=== PATIENT | female | born 1955 | race Caucasian/White ===

== ENCOUNTER 2020-04-01 13:21 | Emergency (ER) | payer OTHER ==
[2020-04-01] MEDS: Ondansetron 4 MG/2 ML SDV IVPUSH ONE (13:56)
[2020-04-01] MEDS: Sodium Chloride 0.9% 10 ML Syringe FLUSH PRN (13:57)
[2020-04-01] MEDS ORDERED: Ondansetron 4 MG/2 ML SDV ONE (13:58)
[2020-04-01 14:01] LABS: CHLORIDE,CL 104 mmol/L (98-107); SODIUM,NA 141 mmol/L (136-145)
--- NOTE | 2020-04-01 14:43 | EDM.PDOC ---
ED HPI GENERAL MEDICAL PROBLEM - General Chief Complaint: Neuro Symptoms/Deficits Stated Complaint: stroke code Time Seen by Provider: 04/01/20 13:30 Source of Information: Reports: Patient, EMS Notes Reviewed History Limitations: Reports: No Limitations - History of Present Illness INITIAL COMMENTS - FREE TEXT/NARRATIVE: Pt was at store in town and stood up and felt like left ankle gave out. Sat back down and had syncope episode Nurse on scene said lasted 3 to 5 minutes and could not feel radial pulse Did have spontaneous respirations Nurse on scene thought maybe had left face droop EMS states upon arrival, face droop had resolved and pt awake and alert No seizure activity No previous hx/o same No trauma No illness Onset: Today, Sudden Duration: Minutes:, Improving Location: Reports: Generalized - Related Data Allergies Allergy/AdvReac Type Severity Reaction Status Date / Time No Known Allergies Allergy Verified 04/01/20 13:30 Home Meds: Home Meds . [No Known Home Meds] 04/01/20 [History] Social & Family History - Living Situation & Occupation Living situation: Reports: Occupation: Employed ED ROS GENERAL - Review of Systems Review Of Systems: See Below Constitutional: Reports: No Symptoms HEENT: Reports: No Symptoms Respiratory: Reports: No Symptoms Cardiovascular: Reports: Other (Possible asystole) GI/Abdominal: Reports: No Symptoms Musculoskeletal: Reports: No Symptoms Neurological: Reports: Syncope ED EXAM, NEURO - Physical Exam Exam: See Below Exam Limited By: No Limitations General Appearance: Alert, No Apparent Distress Eye Exam: Bilateral Eye: EOMI, PERRL Nose: Normal Inspection Throat/Mouth: Normal Oropharynx Head Exam: Atraumatic Neck: Supple, Non-Tender, Full Range of Motion Respiratory/Chest: Lungs Clear Cardiovascular: Regular Rate, Rhythm GI/Abdominal: Non-Tender Neurological: Alert, Normal Mood/Affect, No Motor/Sensory Deficits, Oriented x 3 , Other (GCS 15 Stroke scale 0) Extremities: Normal Inspection Psychiatric: Normal Affect Course - Orders/Labs/Meds Orders: Active Orders 24 hr Category Date Time Status EKG Documentation Completion [RC] ASDIRECTED Care 04/01/20 13:32 Active Chest 1V Frontal [CR] Stat Exams 04/01/20 13:32 Taken Head wo Cont [CT] Stat Exams 04/01/20 13:22 Taken Sodium Chloride 0.9% [Saline Flush] Med 04/01/20 13:53 Active 10 ml FLUSH ASDIRECTED PRN Medication Orders Sodium Chloride (Saline Flush) 10 ml FLUSH ASDIRECTED PRN PRN Reason: Keep Vein Open Last Admin: 04/01/20 13:57 Dose: 10 ml Labs: Laboratory Tests 04/01/20 04/01/20 04/01/20 Range/Units 13:35 13:35 13:35 WBC 7.7 (4.0-10.2) K/uL RBC 4.47 (3.77-5.09) M/uL Hgb 13.3 (11.7-15.5) g/dL Hct 40.5 (34.0-46.0) % MCV 90.6 (84.0-98.0) fL MCH 29.8 (28.2-33.3) pg MCHC 32.8 (31.7-36.0) g/dL RDW 13.3 (11.2-14.1) % Plt Count 290 (150-350) K/uL Neut % (Auto) 44.7 L (45.0-80.0) % Lymph % (Auto) 45.8 (10.0-50.0) % Fleming % (Auto) 6.8 (2.0-14.0) % Eos % (Auto) 2.3 (0.0-5.0) % Baso % (Auto) 0.4 (0.0-2.0) % Neut # (Auto) 3.42 (1.40-7.00) K/uL Lymph # (Auto) 3.51 H (0.50-3.50) K/uL Fleming # (Auto) 0.52 (0.00-1.00) K/uL Eos # (Auto) 0.18 (0.00-0.50) K/uL Baso # (Auto) 0.03 (0.00-0.20) K/uL PT 9.9 (9.5-12.0) SEC INR 1.0 Sodium 141 (136-145) mmol/L Potassium 3.6 (3.5-5.1) mmol/L Chloride 104 (98-107) mmol/L Carbon Dioxide 22.3 (21.0-32.0) mmol/L BUN 16 (7-18) mg/dL Creatinine 0.86 (0.51-1.17) mg/dL Est Cr Clr Drug Dosing TNP Estimated GFR (MDRD) > 60 mL/min Glucose 132 H (74-106) mg/dL Calcium 9.3 (8.5-10.1) mg/dL Total Bilirubin 0.4 (0.2-1.0) mg/dL AST 20 (15-37) U/L ALT 24 (12-78) U/L Alkaline Phosphatase 65 (46-116) IU/L Troponin I 0.000 (0.000-0.056) ng/mL Total Protein 7.7 (6.4-8.2) g/dL Albumin 4.0 (3.4-5.0) g/dL Meds: Medications Generic Name Dose Route Start Last Admin Trade Name Freq PRN Reason Stop Dose Admin Sodium Chloride 10 ml 04/01/20 13:53 04/01/20 13:57 Saline Flush FLUSH 10 ml ASDIRECTED PRN Administration Keep Vein Open Discontinued Medications Generic Name Dose Route Start Last Admin Trade Name Freq PRN Reason Stop Dose Admin Ondansetron HCl 4 mg 04/01/20 13:53 04/01/20 13:56 Zofran IVPUSH 04/01/20 13:54 4 mg ONETIME ONE Administration - Re-Assessments/Exams Free Text/Narrative Re-Assessment/Exam: 04/01/20 14:[address] negative Pt stable in ER D/W Dr Min On-call stroke neurology Will send to [facility] ER for syncope evaluation Departure - Departure Time of Disposition: 14:40 Disposition: DC/Tfer to Acute Hospital 02 Clinical Impression: Syncope Qualifiers: Syncope type: unspecified Qualified Code(s): R55 - Syncope and collapse - Discharge Information Referrals: PCP,None [Primary Care Provider] - - My Orders Last 24 Hours: My Active Orders 04/01/20 13:22 Head wo Cont [CT] Stat 04/01/20 13:32 EKG Documentation Completion [RC] ASDIRECTED Chest 1V Frontal [CR] Stat 04/01/20 13:53 Sodium Chloride 0.9% [Saline Flush] 10 ml FLUSH ASDIRECTED PRN - Assessment/Plan Last 24 Hours: My Active Orders 04/01/20 13:22 Head wo Cont [CT] Stat 04/01/20 13:32 EKG Documentation Completion [RC] ASDIRECTED Chest 1V Frontal [CR] Stat 04/01/20 13:53 Sodium Chloride 0.9% [Saline Flush] 10 ml FLUSH ASDIRECTED PRN
== END 2020-04-01 14:40 ==
LOC: LL.ED 13:21
DX: R55 Syncope and collapse (principal)
CPT/HCPCS: 36415; 70450; 71045; 80053; 84484; 85025; 85610; 93005; 96374; 99285-25; J2405

== ENCOUNTER 2020-10-08 09:47 | Day surgery (SDC) | payer OTHER ==
[~2020-10-08 09:47] MED LIST: Sodium Chloride 0.9% 10 ML Syringe FLUSH PRN
[2020-10-08] MEDS ORDERED: Lactated Ringers 1,000 ML IV SCH (10:45)
[2020-10-08] MEDS ORDERED: Propofol 200 MG/20 ML SDV ONE ×2 (11:36→11:42)
[2020-10-08] MEDS ORDERED: Midazolam 1 MG/ML 2 ML SDV ONE ×2 (11:36→11:42)
[2020-10-08] MEDS ORDERED: Ondansetron 4 MG/2 ML SDV ONE (11:42)
--- NOTE | 2020-10-08 11:51 | PCM.PN ---
- General Info Date of Service: 10/08/20 - Review of Systems Systems Review Comment:: 65-year-old female with change in bowel habits here for colonoscopy. She says it has been about 6 years since her last colon exam. I reviewed the patient's history and physical and no significant changes are noted. I have discussed the proposed colonoscopy with the patient. Risks such as but not limited to bleeding and GI injury reviewed. She agrees to proceed. - Patient Data Vitals - Most Recent: Last Vital Signs Temp 98.9 F 10/08/20 10:33 Pulse 73 10/08/20 10:33 Resp 18 10/08/20 10:33 BP 113/75 10/08/20 10:33 Pulse Ox 97 10/08/20 10:33 Weight - Most Recent: 72.575 kg Med Orders - Current: Current Medications Lactated Ringer's (Ringers, Lactated) 1,000 mls @ 125 mls/hr IV ASDIRECTED JUANITO Last Admin: 10/08/20 10:40 Dose: 125 mls/hr Documented by: Sodium Chloride (Saline Flush) 10 ml FLUSH ASDIRECTED PRN PRN Reason: Keep Vein Open Discontinued Medications Midazolam HCl (Versed 1 Mg/Ml) Confirm Administered Dose 2 mg .ROUTE .STK-MED ONE Stop: 10/08/20 11:37 Propofol (Diprivan 20 Ml) Confirm Administered Dose 200 mg .ROUTE .STK-MED ONE Stop: 10/08/20 11:37 Sepsis Event Note - Focused Exam Vital Signs: Vital Signs Temp Pulse Resp BP Pulse Ox 10/08/20 10:33 98.9 F 73 18 113/75 97 - Problem List Review Problem List Initiated/Reviewed/Updated: Yes - Assessment Assessment:: Change in bowel habits - Plan Plan:: Colonoscopy
--- NOTE | 2020-10-08 12:27 | PCM.OPNOTE ---
- General Post-Op/Procedure Note Date of Surgery/Procedure: 10/08/20 Operative Procedure(s): Colonoscopy Findings: Extensive left colon diverticulosis Moderate sized external hemorrhoids Pre Op Diagnosis: Change in bowel habits Post-Op Diagnosis: Left colon diverticulosis. Hemorrhoids Anesthesia Technique: MAC Primary Surgeon: Nura Pagan Pathology: none EBL in mLs: 0 Complications: None Condition: Good
--- NOTE | 2020-10-08 14:38 | OR ---
Date of Procedure: 10/08/2020 PREOPERATIVE DIAGNOSIS: Change in bowel habits. POSTOPERATIVE DIAGNOSIS: Left colon diverticulosis and hemorrhoids. OPERATIONS PERFORMED: Colonoscopy. INDICATIONS FOR SURGERY: This 65-year-old female has noted a recent change in her bowel pattern. It has been several years since her last colon exam and she comes for colonoscopy. FINDINGS: The patient has extensive diverticulosis in the sigmoid and descending colon. Multiple diverticula are noted, although they do not appear to be acutely inflamed, or otherwise, complicated. The patient also has moderate sized external hemorrhoids. The colon is otherwise normal. DESCRIPTION OF PROCEDURE: The patient was taken to the operating room. She was given intravenous sedation, and with her in the left lateral decubitus position, digital rectal exam was performed showing no rectal masses. The Olympus colonoscope was inserted into the rectum. Retroflexed examination of the rectal canal was performed. The scope was then carefully advanced under direct visualization through the entire length of the colon until the cecum was reached. Cecal acquisition was confirmed by noting the normal internal cecal anatomy including the appendiceal orifice and ileocecal valve and the light was also noted to transilluminate the abdominal wall in the right lower quadrant. After examining the cecum, the scope was slowly withdrawn sequentially re- examining the colonic segments until the entire colon and rectum had been fully examined. The scope was removed and the patient was taken from the operating room in satisfactory condition. ESTIMATED BLOOD LOSS: Zero. COMPLICATIONS: None. PROGNOSIS: Good. ARNOLD Pagan MD /[id number]
[2020-10-08 15:29] VITALS: BP 118/70; PULSE 63
== END 2020-10-08 14:00 | disposition home or self-care (01) ==
LOC: LL.SDS 09:47
PROVIDERS: ATTEND Surgery
DX: K57.30 Diverticulosis of large intestine without perforation or abscess without bleeding (principal); K64.4 Residual hemorrhoidal skin tags; E04.1 Nontoxic single thyroid nodule; T67.1XXA Heat syncope, initial encounter; Z01.812 Encounter for preprocedural laboratory examination; Z20.828 Contact with and (suspected) exposure to other viral communicable diseases
CPT/HCPCS: 00812; J2250; J2405; J2704; J7120; U0002